=== PATIENT | male | born 1995 | race Caucasian/White ===

== ENCOUNTER 2016-05-25 13:29 | Emergency (ER) | payer MEDICAID ==
[~2016-05-25] VITALS: Wt 98.0 kg
--- NOTE | 2016-05-25 14:10 | ERD ---
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 no neuro def no loc HPI 21 y/o male presents to ED for choking episode prior to eating it happened 30 minutes prior to arrival. Brother was stating that patient became pale with a prep please call her to while having the episode. Father described the episode as a seizure-like appearance. Denies headache, head trauma, loss of consciousness, dizziness, blurry vision, changes in vision, photophobia, facial pain, ear pain, throat pain, difficulty swallowing, neck pain, shoulder pain, chest pain, cough, hemoptysis, abdominal pain, back pain, loss of appetite, nausea, vomiting, hematochezia, diarrhea, constipation, urinary symptoms, bladder and bowel incontinences, extremity weakness, extremity tenderness, numbness or tingling sensation, difficulty walking, recent travel, recent exposure to illness, recent antibiotic use in the last 3 months, fever, chills. Allergy: NKA PMH: Denies. Medications: Denies. Surgery: Denies. Family history: Denies family history of heart disease. Denies family history of sudden before the age of 50. Denies family history of heart attack before age 50. Denies family history of stroke. 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 Denies smoking, use of alcohol, use of illegal drugs. ROS All systems reviewed and are negative except as per history of present illness. Allergies Allergies: Coded Allergies: No Known Allergy (Unverified , 05/25/16) PMhx/Soc Hx Alcohol Use: No Hx Substance Use: No Hx Tobacco Use: No Physical Exam Vitals Vital Signs Date Time Temp Pulse Resp B/P Pulse Ox O2 Delivery O2 Flow Rate FiO2 05/25/16 13:31 98.5 98 20 128/61 98 Physical Exam CONSTITUTIONAL: Well-appearing; well-nourished; in no apparent distress. HEAD: Normocephalic; atraumatic. EYES: Conjunctiva clear, sclera non-icteric, EOM intact. PERRL Ears: Hearing intact. EACs clear, TMs non-bulging, non-inflamed, translucent & mobile, ossicles normal appearance, No obstructions, no erythema, no discharges Nose: No obstructions. No polyps. No external lesions. Mucosa non-inflamed. No external lesions, septum and turbinates normal. No rhinorrhea. No discharges. Frontal sinus is non-tender to palpation. Maxillary sinus is non-tender to palpation. MOUTH: Moist mucous membranes, no lesion, no obstructions, no vesicles, no thrush, patent airway. No signs of tongue trauma.Left sided oral buccal mucosa has trauma about .5 cm in length. No active bleeding. Speaks full clear sentences. Patent airway. Throat: Uvula in midline. Right tonsil is +1 with no erythema, no exudate. Left tonsil is +1 with no erythema, no exudate. No foreign body seen. No drooling. Tolerating secretions well. Good gag reflex. Patent airway. Neck: Supple, without lesions, bruits, or adenopathy. No mass. Thyroid non- enlarged and non-tender to palpation. CHEST: Symmetrical chest. Respirations even and not labored. No retractions noted. CARDIOVASCULAR: Normal S1, S2. RRR. No murmurs, gallops. RESPIRATORY: Normal chest excursion with respiration; breath sounds clear and equal bilaterally; no wheezes, rhonchi, or rales. Breathing even and unlabored. Speaking in clear, full, and complete sentences w/ ease. ABDOMEN: Normal bowel sounds normal. Soft, round, non-distended, non-guarding, no tenderness, no rebound, no organomegaly, no masses, no pulsating abdominal mass. No hernia. No peritoneal signs. : No CVA tenderness. BACK: Symmetrical shoulder. Spine is midline without deformity, tenderness. No evidence of trauma or deformity. PELVIS: Stable pelvis. No evidence of trauma or deformity. MUSCULOSKELETAL: Normal gait and station. No misalignment, asymmetry, crepitation, defects, tenderness, masses, effusions, decreased range of motion, instability, atrophy or abnormal strength or tone in the head, neck, spine, ribs , pelvis or extremities. No calf tenderness. NEUROVASCULAR: Distal pulses are present. Pedal pulse are present, equal, and normal. Capillary refills are < 2 seconds. NEUROLOGIC: Alert and oriented x4. Speaks full and clear sentences. Cranial Nerves II-XII normal. Sensation to pain, touch, and proprioception normal. Grossly unremarkable. No neurologic deficits. Romberg test is negative. PSYCHOLOGICAL: The patients mood and manner are appropriate. No hallucinations , delusions. Not SI. Not HI. Has the capacity to decide for self SKIN: Normal for age and ethnicity; warm; dry; good turgor; no apparent lesions or exudates. No rashes, hives, discoloration. Intact. Result Diagram: 05/25/16 1502 05/25/16 1502 Results 24 hrs Laboratory Tests Test 05/25/16 15:02 Activated Partial Thromboplast Time 27.0Sec Anion Gap 19 Basophils # 0.010^3/ul Basophils % 0.2% Blood Urea Nitrogen 13mg/dl Calcium Level 9.9mg/dl Carbon Dioxide Level 28mmol/L Chloride Level 99mmol/L Creatinine 0.82mg/dl Eosinophils # 0.010^3/ul Eosinophils % 0.1% Glucose Level 109mg/dl Hematocrit 46.2% Hemoglobin 15.9g/dl INR International Normalized Ratio 0.90 Lymphocytes # 1.710^3/ul Lymphocytes % 8.4% Mean Corpuscular Hemoglobin 29.7pg Mean Corpuscular Hemoglobin Concent 34.4g/dl Mean Corpuscular Volume 86.2fl Mean Platelet Volume 10.5fl Monocytes # 0.810^3/ul Monocytes % 3.8% Neutrophils # 18.010^3/ul Neutrophils % 87.2% Nucleated Red Blood Cells # 0.010^3/ul Nucleated Red Blood Cells % 0.0/100WBC Platelet Count 04417^3/UL Potassium Level 4.1mmol/L Prothrombin Time 12.1Sec Prothrombin Time Ratio 0.9 Red Blood Count 5.3610^6/ul Red Cell Distribution Width 12.0% Sodium Level 142mmol/L Urine Amorphous Urates MANY Urine Bacteria MODERATE Urine Bilirubin NEGATIVE Urine Clarity CLOUDY Urine Color LT. YELLOW Urine Glucose NEGATIVE% Urine Hemoglobin TRACE Urine Ketones TRACE Urine Leukocyte Esterase NEGATIVE Urine Microscopic RBC 0-2/HPF Urine Microscopic WBC NONE SEEN/HPF Urine Nitrite NEGATIVE Urine Specific [place] >=1.030 Urine Total Protein TRACE Urine Urobilinogen 0.2 E.U./dL Urine pH 5.5 White Blood Count 20.710^3/ul Current Medications Medications (Trade) Dose Ordered Sig/Gaurang Route PRN Reason Start Time Stop Time Status Last Admin Dose Admin Ondansetron HCl (Zofran Inj) 4 mg ONCE STAT IV 05/25/16 14:17 05/25/16 14:19 DC 05/25/16 15:14 Ondansetron HCl 4 mg 4 mg ONCE STAT IV 05/25/16 14:45 05/25/16 15:00 DC Levetiracetam/ Sodium Chloride (Keppra Iv/NS) 110 ml @ 440 mls/hr ONCE ONCE IVPB 05/25/16 16:00 05/25/16 16:14 DC Procedures/MDM Examination: Please see physical examination. Disease process, medical treatment was explained to the patient and family member. They verbalized understanding and agreed with the diagnostic tests, medical treatment, and follow-up care. EKG: Sinus tachycardia with a ventricular rate of 111 bpm. Radiology: CT of the head. Impression: No intracranial hemorrhage, mass-effect or midline shift. Sclerotic appearance of bilateral mastoids. Opacification of the right middle ear cavity and mastoid antrum. Clear left middle ear cavity. Left middle ear ossicles are not well visualized. Correlate with prior surgical history. Chest x-ray. Impression: Normal 2 view chest x-ray. No evidence of an acute infiltrate or pleural effusion. Blood works: Reviewed. Urinalysis: Reviewed. Urine drug screen: Awaiting for results. Treatment: IV insertion. Zofran 4 mg IV. P.o. challenge. Keppra 1 g IV 1. Re-evaluation: No seizure activity here in the emergency department. Denies pain. No pain on eye movement. Extraocular movements of the eyes are within normal limits without pain and discomfort. No neck stiffness and neck pain. Good and full range of motion of the neck without pain and difficulty. No focal neurologic deficit. Romberg test is negative. Consultation: None. Differential diagnosis: New onset seizure Medical decision makin21 y/o male presents to ED for choking episode prior to eating it happened 30 minutes prior to arrival. Brother was stating that patient became pale with a prep please call her to while having the episode. Father described the episode as a seizure-like appearance. During history taking patient denies any oral trauma however after reevaluation about an hour and a half after my history taking patient stated that he had a left-sided oral buccal mucosa trauma with no active bleeding. I discussed this with my supervising physician, Dr. Sinan Robertson who agreed with my present treatment, diagnostic workup. He also have me talk to emergency room supervising physician , Dr. Best agreed with my present diagnostic workup plan of care and follow- up care and he also suggested for me to give 1 dose of Keppra 1 g IV here in the emergency room and discharged patient if CT is negative with a prescription of Keppra 750 mg twice a day and also to follow-up with his neurologist in the next 24-48 hours. He also stated to give patient seizure precautions at home. Patient's complaint, brothers history regarding the patient, father's history regarding the patient, my physical findings, diagnostic test results are consistent with my final diagnosis of new onset seizure. No seizure activity here in emergency room. Medications prescribed are the following: Keppra 750 mg twice a day. Patient and family member are made aware of the side effects and adverse reactions of the medications prescribed. Instructed on when to seek emergent and medical attention in case allergic/anaphylactic reactions or severe side effects and or adverse reactions to medications. Patient and family member verbalized understanding. Patient instructed Instructed to follow-up with his PCP in 24-48 hours. PCP to refer patient to neurologist in the next 24-48 hours. Patient was also advised not to drive. Not to swim in the swimming pool. Seizure precautions was also given to patient and family member. Patient, his brother, and his father agreed with the plan of care and verbalized understanding. Instructed to Call 911 for chest pain, shortness of breath. Advised to come back here in ED as soon as possible for severity of symptoms which includes but not limited to: any new symptoms; shortness of breath/difficulty of breathing; cardiovascular changes; severe gastrointestinal symptoms; signs and symptoms of bleeding and or infection; signs of compartment syndrome/neurovascular changes; neurological changes/deficits. Patient and family member verbalized understanding. Upon discharge, patient is alert and oriented x 4, speaks full and clear sentences, denies pain, has no neurological deficits, has no neurovascular deficits, difficulty of breathing. No drooling. Tolerating oral secretions. Patent airway. No active bleeding. No neck stiffness. Good and full range of motion of the neck without pain and difficulty. Extraocular movements of the eye is within normal limits without pain. No focal neurologic deficit. Romberg test is negative. Breathing even and unlabored. Lung sounds are clear to auscultation. Not in distress. Appears comfortable. Ambulatory with steady gait. Appears satisfied with care provided here in ED. Departure Diagnosis: Primary Impression: New onset seizure Condition: Stable Additional Instructions: Instructed to follow-up with his PCP in 24-48 hours. PCP to refer patient to neurologist in the next 24-48 hours. Seizure precautions was also given to patient and family member. Instructed to Call 911 for chest pain, shortness of breath. Advised to come back here in ED as soon as possible for severity of symptoms which includes but not limited to: any new symptoms; shortness of breath/difficulty of breathing; cardiovascular changes; severe gastrointestinal symptoms; signs and symptoms of bleeding and or infection; signs of compartment syndrome/neurovascular changes; neurological changes/deficits. Patient and family member verbalized understanding. SCOT BLUE May 25, 2016 14:10
[2016-05-25] MEDS ORDERED: ONDANSETRON 4 MG INJ IV STA ×2 (14:17→14:45)
[2016-05-25 15:17] LABS: ADD SCAN DIFF NO
[2016-05-25 15:21] LABS: BASOPHILS % 0.2 % (0.0-2.0); EOSINOPHILS % 0.1 % (0.0-7.0); HEMATOCRIT 46.2 % (42.0-52.0); HEMOGLOBIN 15.9 g/dl (14.0-18.0); LYMPHOCYTES # 1.7 10^3/ul (0.8-2.9); LYMPHOCYTES % 8.4 % (15.0-51.0); MEAN CORPUSCULAR HEMOGLOBIN 29.7 pg (29.0-33.0); MEAN CORPUSCULAR HGB CONC 34.4 g/dl (32.0-37.0); MEAN CORPUSCULAR VOLUME 86.2 fl (82.0-101.0); MEAN PLATELET VOLUME 10.5 fl (7.4-10.4); MONOCYTE # 0.8 10^3/ul (0.3-0.9); MONOCYTES % 3.8 % (0.0-11.0); NEUTROPHILS % 87.2 % (39.0-77.0); PLATELET COUNT 341 10^3/UL (140-415); RED BLOOD COUNT 5.36 10^6/ul (4.70-6.10); WHITE BLOOD COUNT 20.7 10^3/ul (4.8-10.8)
[2016-05-25 15:22] LABS: ADD UMIC YES; URINE BILIRUBIN (Dip) NEGATIVE (NEGATIVE); URINE BLOOD (Dip) TRACE (NEGATIVE); URINE COLOR LT. YELLOW (YELLOW); URINE GLUCOSE (Dip) NEGATIVE (NEGATIVE); URINE KETONES (Dip) TRACE (NEGATIVE); URINE LEUKOCYTE ESTERASE (Dip) NEGATIVE (NEGATIVE); URINE NITRITE (Dip) NEGATIVE (NEGATIVE); URINE TOTAL PROTEIN (Dip) TRACE (NEGATIVE); URINE UROBILINOGEN (Dip) 0.2 E.U./dL (0.1-1.0)
[2016-05-25 15:30] LABS: INR 0.9; PROTIME 12.1 Sec (12.2-14.2); PT RATIO 0.9
[2016-05-25 15:39] LABS: BACTERIA,URINE MODERATE; URINE RBCS 0-2 /HPF (0)
[2016-05-25] MEDS ORDERED: LEVETIRACETAM IV 1,000 MG in SOD CHLORIDE 0.9% 100 ML IVPB ONE (16:00)
[2016-05-25 16:01] LABS: POTASSIUM 4.1 mmol/L (3.5-5.1)
[2016-05-25 16:03] LABS: CREATININE 0.82 mg/dl (0.61-1.24)
--- NOTE | 2016-05-25 16:03 | RADRPT ---
PROCEDURE: CT Brain without contrast. CLINICAL INDICATION: Severe headache. Seizure. TECHNIQUE: A CT of the brain was performed on a multidetector CT scanner utilizing axial sections from the skull base through the vertex without contrast. Images were reviewed on a high-resolution Real Time Content workstation. Exam CTDI = 49.01 mGy and the DLP = 817.78 mGy-cm. One or more of the following dose reduction techniques were used: Automated exposure control Adjustment of the mA and/or kV according to patient size. Use of iterative reconstruction technique. COMPARISON: None available FINDINGS: There is no evidence of intracranial hemorrhage, mass effect or midline shift. No abnormal intra-ax ial or extra-axial fluid collections are seen. The density of the brain is normal and the sapp/whit e matter differentiation is well preserved. The osseous structures and visualized paranasal sinuse s are unremarkable. There is sclerosis of bilateral mastoid bones with loss of aeration. There is o pacification of the right middle ear cavity and mastoid antrum. Middle ear ossicles are identified on the right. The left middle ear ossicles are not well visualized. Left middle ear cavity is clear . IMPRESSION: 1. No intracranial hemorrhage, mass effect or midline shift. 2. Sclerotic appearance of bilateral mastoids. Opacification of the right middle ear cavity and ma stoid antrum. Clear left middle ear cavity. Left middle ear ossicles are not well visualized. Cor relate with prior surgical history. RPTAT: BB .Sejla Wilks MD, Date Time Electronically viewed and signed by .Sejal Wilks MD, MD on 05/25/2016 16:03 .O/
[2016-05-25 16:04] LABS: CALCIUM 9.9 mg/dl (8.4-10.2)
--- NOTE | 2016-05-25 16:06 | RADRPT ---
PROCEDURE: XR Chest. CLINICAL INDICATION: Pneumonia. TECHNIQUE: PA and Lateral views of the chest were obtained. COMPARISON: No. FINDINGS: The heart is normal in size. The left-sided aorta is normal. The trachea and hilar structures are normal. The lungs are clear. The diaphragms are flattened. No pleural effusion is noted. The bon y elements are normal. IMPRESSION: 1. Normal two-view chest x-ray. 2. No evidence of an acute infiltrate or pleural effusion. RPTAT:AAJJ Physician Cesar Date Time Electronically viewed and signed by Kev George Physician on 05/25/2016 16:05 BERONICA/
[2016-05-25] MEDS ORDERED: LEVE500S9 PO (16:37)
[2016-05-25 17:20] VITALS: BP 135/73; PULSE 75; RESP 20; TEMP 98.6
[2016-05-25 17:56] LABS: BARBITURATES Negative (NEGATIVE); BENZODIAZEPINES Negative (NEGATIVE); CANNABINOIDS Negative (NEGATIVE)
[2016-05-25 17:59] LABS: COCAINE Negative (NEGATIVE); OPIATES Negative (NEGATIVE)
== END 2016-05-25 17:23 | disposition home or self-care (01) ==
LOC: FTE 13:29
DX: R56.9 Unspecified convulsions (principal)
CPT/HCPCS: 36415; 70450; 71020; 80048; 80307; 81001; 85025; 85610; 85730; 93005; 96374; 96375; J1953; J2405; Z7502; Z7610; 81003

== ENCOUNTER 2016-10-07 09:30 | Emergency (ER) | payer SELFPAY ==
[~2016-10-07] VITALS: Ht 167.6 cm; Wt 100.0 kg
[~2016-10-07 09:30] MED LIST: LEVE500S9 PO
[2016-10-07 09:34] VITALS: Ht 167.6 cm; Wt 100.0 kg
--- NOTE | 2016-10-07 10:09 | ERD ---
ER Documentation Chief Complaint Date/Time DATE: 10/07/16 TIME: 10:04 Chief Complaint SEIZURE TONIC CLONIC LASTED 2 MIN HPI Patient is a 21-year-old male who presents with sudden onset, constant, generalized tonic-clonic seizure for 2 minutes while he was in the bathroom. He does not believe that he experienced trauma. He complains of a mild generalized headache. He has no tender areas on his scalp. His parents came into the bathroom and saw him convulsing. They stated that the convulsion lasted for 2 minutes. The patient had a first seizure in May, and was started on Keppra. He is followed up with a neurologist at [facility] and has an MRI scheduled in October. The patient states that he has not been taking his medication. He states that he does not drive. ROS All systems reviewed and are negative except as per history of present illness. Medications Home Meds Active Scripts Levetiracetam* (Keppra*) 500 Mg/5 Ml Solution, 750 MG PO BID for 30 Days, BOTTLE Prov:SCOT BLUE 05/25/16 Allergies Allergies: Coded Allergies: No Known Allergy (Unverified , 05/25/16) PMhx/Soc Past medical history: Seizure Past surgical history: Denies Social history: Denies tobacco, alcohol or illicit drugs. History of Surgery: No Anesthesia Reaction: No Hx Neurological Disorder: No Hx Respiratory Disorders: No Hx Cardiac Disorders: No Hx Psychiatric Problems: No Hx Miscellaneous Medical Probl: Yes (Seizure disorder) Hx Alcohol Use: No Hx Substance Use: No Hx Tobacco Use: No Smoking Status: Never smoker FmHx Family History: No coronary disease, No diabetes Physical Exam Vitals Vital Signs Date Time Temp Pulse Resp B/P Pulse Ox O2 Delivery O2 Flow Rate FiO2 10/07/16 09:34 99.7 111 20 141/67 99 Physical Exam Const: Alert, no acute distress Head: Atraumatic, no scalp tenderness. No hematoma Eyes: Normal Conjunctiva, no pallor or icterus, pupils equal round reactive ENT: Normal External Ears, Nose and Mouth. Mucous membranes moist Neck: Full range of motion..~ No meningismus. No midline tenderness Resp: Clear to auscultation bilaterally, no wheezes, no rales Cardio: Tachycardia, or rhythm, no murmurs Abd: Soft, non tender, non distended. Skin: No petechiae or rashes Back: No midline or flank tenderness Ext: No cyanosis, or edema Neur: Awake and alert, cranial nerves II through XII intact bilaterally, strength and sensation full in 4 extremities Psych: Normal Mood and Affect Results 24 hrs Current Medications Medications (Trade) Dose Ordered Sig/Gaurang Route PRN Reason Start Time Stop Time Status Last Admin Dose Admin Levetiracetam (Keppra) 500 mg ONCE ONCE PO 10/07/16 10:30 10/07/16 10:31 Procedures/MDM MDM: Patient is a 21-year-old male with recent diagnosis of seizure disorder who presents with a 2 minute generalized tonic-clonic seizure. The patient has not been compliant with his seizure medication. He does not have any evidence of trauma. His mental status is back to baseline. He does have mild tachycardia. Patient states that he feels well, and was in his normal state of health prior to the seizure. He has outpatient follow-up scheduled. I reviewed his workup from prior visit, and he had a normal head CT at the time. I do not believe that further neuroimaging is indicated at this time. The patient was given a dose of Keppra. He was observed in the ER for 1 hour. DMV was notified of the patient's seizure. The patient was encouraged to take his home seizure medications. Departure Diagnosis: Primary Impression: Seizure disorder Condition: Stable JOSE A CURRY MD Oct 07, 2016 10:09
[2016-10-07] MEDS ORDERED: LEVETIRACETAM 500 MG TAB PO ONE (10:30)
[2016-10-07] MEDS ORDERED: LEVE500T8 PO (10:43)
[2016-10-07 11:06] VITALS: BP 124/67; PULSE 97; RESP 20; TEMP 99.1
== END 2016-10-07 11:07 | disposition home or self-care (01) ==
LOC: E/R 09:30
DX: G40.909 Epilepsy, unspecified, not intractable, without status epilepticus (principal)
CPT/HCPCS: 99283